=== PATIENT | female | born 1965 | race Caucasian/White ===

== ENCOUNTER → 2017-04-22 | Outpatient (CLI) | payer BC ==
[~2017-04-22] MED LIST: ASPIRIN 81M81 MG/TA2 PO; BYSTOLIC10 MG PO; FLAX OIL1000 MG PO; FLAX SEED OIL1000 MG PO; HCTZ 25MG TAB25 MG PO; LIPITOR 10MG10 MG PO; MULTIPLE VITAMI1 CAP PO; MULTIPLE VITAMI1 TA5 PO; NATURAL E400 IU PO; TOPAMAX 25MG25 M1 PO; VITAMIN E100 I3
== END ==
LOC: MC.RAD 08:23
DX: Z12.31 Encounter for screening mammogram for malignant neoplasm of breast (principal)

== ENCOUNTER 2017-05-09 08:42 | Day surgery (SDC) | payer BC ==
[~2017-05-09] VITALS: Ht 165.1 cm; Wt 93.6 kg
[2017-05-09] MEDS ORDERED: PRIL40 PO (09:05)
[2017-05-09] MEDS ORDERED: CELEXA10 MG PO (09:06)
[2017-05-09] MEDS ORDERED: COZAAR 50MG50 MG/TAB PO (09:06)
[2017-05-09] MEDS ORDERED: MAXALT10 MG (09:07)
[2017-05-09 09:18] VITALS: BP 147/85; PULSE 57; TEMP 98.3
[2017-05-09 10:10] VITALS: BP 157/83; PULSE 58; TEMP 98.4
[2017-05-09 10:30] VITALS: BP 162/86; PULSE 55
[2017-05-09 10:45] VITALS: BP 166/72; PULSE 54
[2017-05-09 11:00] VITALS: BP 163/81; PULSE 53
== END 2017-05-09 11:27 | disposition home or self-care (01) ==
LOC: SDCO 08:42
DX: K21.0 Gastro-esophageal reflux disease with esophagitis (principal); K22.2 Esophageal obstruction; K59.00 Constipation, unspecified; K92.1 Melena; I10 Essential (primary) hypertension; K58.0 Irritable bowel syndrome with diarrhea; E78.00 Pure hypercholesterolemia, unspecified; Z90.710 Acquired absence of both cervix and uterus
CPT/HCPCS: J2250; J2405; J3010; J7030

== ENCOUNTER 2024-02-03 08:00 | Outpatient (RCR) | payer SELFPAY ==
[2024-02-02 08:19] VITALS: BP 118/68; PULSE 60; TEMP 97.7
[~2024-02-03] VITALS: Ht 165.1 cm; Wt 81.8 kg
[~2024-02-03 08:00] MED LIST changes: +CATAPRES 0.1MG0.1 MG PO; +CELEXA10 MG PO; +COZAAR 50MG50 MG/TAB PO; +HYGROTON 2525 MG/TAB PO; +MAXALT10 MG; +PRIL40 PO; +TOPROL XL 25MG25 MG PO; +ZOLOFT 50MG50 MG PO
[2024-02-03 08:23] VITALS: BP 106/60; PULSE 61; TEMP 97.8
== END 2024-02-08 | disposition home or self-care (01) ==
LOC: EUO
DX: C73 Malignant neoplasm of thyroid gland (principal)
CPT/HCPCS: A9517-JZ; J3240